=== PATIENT | female | born 1940 | race Caucasian/White ===

== ENCOUNTER 2018-10-16 06:38 | Day surgery (SDC) | payer OTHER ==
[~2018-10-16 06:38] MED LIST: ALPRAZOLAM1 M1 PO; ALTACE10 MG PO; LANTUS SOL100 UNIT/1; METFORMIN HCL500 MG PO; PANTOPRAZOLE SO40 MG PO; RANITIDINE HCL300 M1 PO; ZOCOR40 MG PO; [UNRECOGNIZED DRUG - OTHER] PO; [UNRECOGNIZED DRUG - OTHER] PO
[2018-10-16] MEDS ORDERED: ULTRACET PO (11:01)
== END 2018-10-16 12:40 | disposition home or self-care (01) ==
LOC: CIR.AMB 06:38
DX: R15.9 Full incontinence of feces (principal)
CPT/HCPCS: 64581; C1778

== ENCOUNTER 2018-10-30 07:52 | Day surgery (SDC) | payer OTHER ==
[~2018-10-30 07:52] MED LIST changes: +ULTRACET PO
[2018-10-30] MEDS ORDERED: ULTRACET PO (10:11)
== END 2018-10-30 12:30 | disposition home or self-care (01) ==
LOC: CIR.AMB 07:52
DX: R15.9 Full incontinence of feces (principal)
CPT/HCPCS: 64590; C1767